=== PATIENT | male | born 1975 | race Caucasian/White ===

== ENCOUNTER 2021-12-09 03:10 | Emergency (ER) | payer OTHER ==
[~2021-12-09] VITALS: Ht 177.8 cm; Wt 113.4 kg
[~2021-12-09 03:10] MED LIST: CYCLOBENZAPRINE10 MG PO; IBUPROFEN800 MG PO
== END 2021-12-09 03:56 | disposition home or self-care (01) ==
LOC: ED 03:10
DX: S05.02XA Injury of conjunctiva and corneal abrasion without foreign body, left eye, initial encounter (principal); N18.9 Chronic kidney disease, unspecified; Z87.891 Personal history of nicotine dependence; X58.XXXA Exposure to other specified factors, initial encounter
CPT/HCPCS: 99283; A9270